=== PATIENT | male | born 1985 | race Caucasian/White ===

== ENCOUNTER 2019-03-24 01:40 | Outpatient (CLI) | payer MEDICARE, MEDICAID, SELFPAY ==
[2019-03-24 10:51] LABS: ALT 27 U/L (16-63); AST 20 U/L (15-37); Albumin 3.3 g/dL (3.4-5.0); Alkaline Phosphatase 54 U/L (46-116); Anion Gap 9.5 mmol/L (3-11); BUN 9 mg/dL (7-18); Bilirubin, Total 0.5 mg/dL (0.2-1.0); CO2 29.5 mmol/L (21.0-32.0); Calcium 6.6 mg/dL (8.5-10.1); Chloride 102 mmol/L (98-107); Glucose 98 mg/dL (70-100); Potassium 4.1 mmol/L (3.5-5.1); Sodium 141 mmol/L (136-145); TSH (W/Ref FT4) 4.15 uIU/mL (0.36-3.74); Total Protein 7.1 g/dL (6.4-8.2)
[2019-03-24 11:28] LABS: Vitamin D 25 Total 5.9 ng/ml (30-100)
[2019-03-25 12:03] LABS: Parathyroid Hormone,Intact 15 pg/ml (19-88)
== END 2019-03-24 02:00 ==
PROVIDERS: PCP Family Medicine; Visit Provider Family Medicine
DX: E83.51 Hypocalcemia (principal); R79.89 Other specified abnormal findings of blood chemistry; Z86.39 Personal history of other endocrine, nutritional and metabolic disease
CPT/HCPCS: 36415; 80053; 82306; 83970; 84439; 84443

== ENCOUNTER 2019-05-02 01:13 | Outpatient (CLI) | payer MEDICARE, MEDICAID, SELFPAY ==
[2019-05-02 11:01] LABS: Calcium 7.2 mg/dL (8.5-10.1); Magnesium 1.9 mg/dL (1.8-2.4)
== END 2019-05-02 01:33 ==
PROVIDERS: PCP Family Medicine; Visit Provider Family Medicine
DX: E83.51 Hypocalcemia (principal); Z86.39 Personal history of other endocrine, nutritional and metabolic disease
CPT/HCPCS: 36415; 82310; 83735

== ENCOUNTER 2020-03-02 02:05 | Outpatient (CLI) | payer MEDICARE, MEDICAID, SELFPAY ==
[2020-03-02 12:55] LABS: HCT 36.9 % (40.0-50.0); HGB 11.9 g/dL (13.5-17.5); MCH 28.4 pg (27.0-33.0); MCHC 32.2 % (32.0-36.0); MCV 88.1 fL (80-95); MPV 13.3 fL (8.0-11.0); RBC 4.19 10^6/uL (4.36-5.78); RDW 14.5 % (11.8-14.1); RDW-SD 46.4 fL; WBC 8.44 10^3/uL (4.4-10.8)
[2020-03-02 13:16] LABS: Platelet Count 201 10^3/uL (130-400)
[2020-03-02 13:23] LABS: ALT 21 U/L (16-63); AST 17 U/L (15-37); Albumin 3.4 g/dL (3.4-5.0); Alkaline Phosphatase 50 U/L (46-116); Anion Gap 7.7 mmol/L (3-11); BUN 15 mg/dL (7-18); Bilirubin, Total 0.5 mg/dL (0.2-1.0); CO2 29.3 mmol/L (21.0-32.0); CREATININE 0.78 mg/dL (0.70-1.30); Calcium 7.2 mg/dL (8.5-10.1); Calculated LDL 94 mg/dL (<100); Chloride 104 mmol/L (98-107); Cholesterol 157 mg/dL (<200); Glucose 92 mg/dL (74-106); HDL Cholesterol 53 mg/dL (40-60); Potassium 3.9 mmol/L (3.5-5.1); Sodium 141 mmol/L (136-145); Total Protein 7.1 g/dL (6.4-8.2); Triglyceride 54 mg/dL (<150)
== END 2020-03-02 02:25 ==
PROVIDERS: PCP Family Medicine; Visit Provider Family Medicine
DX: E83.51 Hypocalcemia (principal); E66.01 Morbid (severe) obesity due to excess calories; F17.200 Nicotine dependence, unspecified, uncomplicated; Z86.39 Personal history of other endocrine, nutritional and metabolic disease
CPT/HCPCS: 36415; 80053; 80061; 85027; 84443

== ENCOUNTER 2022-06-27 01:07 | Outpatient (CLI) | payer MEDICARE, MEDICAID, SELFPAY ==
[2022-06-27 12:41] LABS: Calcium 7.2 mg/dL (8.5-10.1); TSH 5.06 uIU/mL (0.36-3.74)
[2022-06-27 16:53] LABS: FREE T4 1.51 ng/dL (0.76-1.46)
== END 2022-06-27 01:08 | disposition home or self-care (01) ==
LOC: LOS 01:07
PROVIDERS: PCP Nurse Practitioner Family; Visit Provider Nurse Practitioner Family
DX: E83.51 Hypocalcemia (principal); R94.6 Abnormal results of thyroid function studies; R79.89 Other specified abnormal findings of blood chemistry; F41.8 Other specified anxiety disorders; E66.01 Morbid (severe) obesity due to excess calories
CPT/HCPCS: 36415; 82310; 84439; 84443

== ENCOUNTER 2023-07-14 03:20 | Outpatient (CLI) | payer MEDICARE, MEDICAID, SELFPAY ==
[2023-07-14 13:04] LABS: Hemoglobin A1C 5.7 % (<5.7)
[2023-07-14 14:10] LABS: Calculated LDL 94 mg/dL (<100); Cholesterol 162 mg/dL (<200); HDL Cholesterol 57 mg/dL (40-60); TSH (W/Ref FT4) 4.73 uIU/mL (0.36-3.74); Triglyceride 57 mg/dL (<150)
[2023-07-14 14:30] LABS: FREE T4 1.25 ng/dL (0.76-1.46)
== END 2023-07-14 03:21 | disposition home or self-care (01) ==
LOC: LOS 03:21
PROVIDERS: PCP Nurse Practitioner Family; Visit Provider Nurse Practitioner Family
DX: F41.8 Other specified anxiety disorders (principal); R94.6 Abnormal results of thyroid function studies; R79.89 Other specified abnormal findings of blood chemistry; E83.51 Hypocalcemia
CPT/HCPCS: 36415; 80061; 82310; 83036; 84439; 84443